=== PATIENT | male | born 2000 | race Two or more races ===

== ENCOUNTER 2024-02-23 19:54 | Emergency (ER) | payer OTHER ==
[~2024-02-23] VITALS: Ht 182.9 cm; Wt 70.5 kg
[2024-02-23 20:18] VITALS: BP 116/70; PULSE 92; RESP 18; O2SAT 96
== END 2024-02-23 21:08 | disposition left against medical advice (07) ==
LOC: ER 19:54
DX: M54.59 Other low back pain (principal); R00.1 Bradycardia, unspecified; Z53.21 Procedure and treatment not carried out due to patient leaving prior to being seen by health care provider